=== PATIENT | female | born 1985 | race Caucasian/White ===

== ENCOUNTER 2023-01-26 19:04 | Emergency (ER) | payer BC ==
[~2023-01-26] VITALS: Ht 162.6 cm; Wt 59.0 kg
[2023-01-26 19:13] VITALS: BP_SYST 112
[2023-01-26] MEDS ORDERED: LORazepam 2 MG/ML VIAL IM ONE (19:15)
[2023-01-26] MEDS ORDERED: LORazepam 2 MG/ML VIAL ONE (19:31)
[2023-01-26 19:50] VITALS: BP_SYST 110
[2023-01-26 19:51] VITALS: BP_SYST 110
== END 2023-01-26 19:51 | disposition home or self-care (01) ==
LOC: EDBD 19:04 → SED 19:04
DX: F41.9 Anxiety disorder, unspecified (principal); R20.0 Anesthesia of skin; R11.0 Nausea; Z91.148 Patient's other noncompliance with medication regimen for other reason; Z79.899 Other long term (current) drug therapy
CPT/HCPCS: 99281; J2060